=== PATIENT | male | born 1990 | race Caucasian/White ===

== ENCOUNTER 2021-06-02 18:54 | Emergency (ER) | payer BC, OTHER ==
[2021-06-02 18:59] VITALS: BP 138/82; PULSE 79; TEMP 99.1
[2021-06-02 19:51] VITALS: RESP 18
--- NOTE | 2021-06-02 19:53 | ED ---
General Adult HPI - General Chief complaint: Recheck/Abnormal Lab/Rx Stated complaint: [facility]-hand injury Time Seen by Provider: 06/02/21 19:45 Source: patient, RN notes reviewed, old records reviewed Mode of arrival: ambulatory - History of Present Illness Initial comments: 30-year-old well-appearing white male presents ambulatory to the emergency room with complaints of hitting his hand against a steel bolt at work today. There was some bleeding and his employer wanted him to be evaluated in the emergency room. He states his tetanus shot is up-to-date. Medical history of asthma. He denies pain states he did not want to come in but was told to come per his employer. He has full range of motion. No other injuries. -: hour(s) (1) Location: right, upper extremity (hand) Severity scale (1-10): 0 Associated Symptoms: denies other symptoms Treatments Prior to Arrival: none - Related Data Previous Rx's Medication Instructions Recorded Ondansetron Odt [Zofran ODT] 4 mg PO Q8HR PRN #20 tab 08/09/14 Allergies Allergy/AdvReac Type Severity Reaction Status Date / Time Penicillins Allergy Swelling Verified 06/02/21 18:59 Review of Systems ROS Statement: Those systems with pertinent positive or pertinent negative responses have been documented in the HPI. ROS Other: All systems not noted in ROS Statement are negative. Past Medical History Past Medical History: Asthma History of Any Multi-Drug Resistant Organisms: None Reported Past Surgical History: Orthopedic Surgery Additional Past Surgical History / Comment(s): shoulder sx Past Psychological History: No Psychological Hx Reported Smoking Status: Vaper Past Alcohol Use History: Occasional Past Drug Use History: None Reported General Exam General appearance: alert, in no apparent distress Head exam: Present: atraumatic, normocephalic Eye exam: Present: normal appearance. Absent: scleral icterus, conjunctival injection Cardiovascular Exam: Present: regular rate Right Hand Wrist exam: Present: full ROM, abrasion (second MCP joint). Absent: tenderness, swelling, ecchymosis, deformity, erythema Neurosensory exam: Present: radial nerve intact, ulnar nerve intact, median nerve intact Vascular: Present: normal capillary refill Neurological exam: Present: alert, oriented X3 Psychiatric exam: Present: normal affect, normal mood Skin exam: Present: warm, dry, normal color. Absent: cyanosis, diaphoretic Course Vital Signs 06/02/21 18:56 Temperature 99.1 F Pulse Rate 79 Respiratory 18 Rate Blood Pressure 138/82 O2 Sat by Pulse 97 Oximetry Procedures - Laceration Laceration #1 Consent Obtained: verbal consent Indication: laceration Site: upper extremity, hand Description: linear Depth: simple, single layer Pre-repair: irrigated extensively Type of Sutures: other (exofin glue steristrips) Patient Tolerated Procedure: well Medical Decision Making - Medical Decision Making 30-year-old male presents to the emergency room after sustaining a 0.5 cm laceration to his right hand at the second MCP joint. Patient states that his tetanus shot is up-to-date. He has no other injuries. X-ray of the right hand shows no evidence of fracture or foreign body. There is a questionable mild subluxation of the thumb interphalangeal joint however patient denies injury or pain of the thumb. He has full range of motion of hand and fingers. Wound was irrigated with copious amounts of soapy water and 20 mL of saline with syringe pressure. Patient requesting glue closure versus one stitch. He was instructed to keep the hand immobilized for 5 days to prevent tension on the wound and reopening. Patient is agreeable to this plan of care. Case discussed with Dr. Cardona. Disposition Clinical Impression: Hand laceration Disposition: HOME SELF-CARE Condition: Good Instructions (If sedation given, give patient instructions): Laceration (ED) Additional Instructions: Keep wound clean and dry. Do not put any ointment or lotions on the glue. Keep the hand immobilized for the next 7 days. Return to the emergency room if any new or concerning symptoms or signs of infection including redness, drainage or fevers. Is patient prescribed a controlled substance at d/c from ED?: No Referrals: None,Stated [Primary Care Provider] - 1-2 days Time of Disposition: 20:10
[2021-06-02] MEDS ORDERED: TOPICAL SKIN ADHESIVE 1 EACH AMP TOPICAL ONE (20:04)
--- NOTE | 2021-06-02 20:41 | XR ---
Result: Clinical History: Pain/injury. Comparison: None available. Technique: 3 views of the right hand. Findings: There is questionable mild subluxation of the thumb interphalangeal joint, only seen on one view. No acute fracture. Otherwise the joint spaces are preserved. There is no definite radiopaque foreign b martha seen. Impression: Questionable mild subluxation of the thumb interphalangeal joint. Recommend clinical correlation. Otherwise no acute fracture.
== END 2021-06-02 21:02 | disposition home or self-care (01) ==
LOC: EC 18:54
DX: S61.411A Laceration without foreign body of right hand, initial encounter (principal); J45.909 Unspecified asthma, uncomplicated; F17.290 Nicotine dependence, other tobacco product, uncomplicated; W26.8XXA Contact with other sharp object(s), not elsewhere classified, initial encounter; Y99.0 Civilian activity done for income or pay
CPT/HCPCS: 99283

== ENCOUNTER 2021-10-03 21:05 | Emergency (ER) | payer BC, OTHER ==
[2021-10-03 21:20] VITALS: BP 125/84; PULSE 95; RESP 16; TEMP 98
--- NOTE | 2021-10-03 21:30 | ED ---
Wound/Laceration HPI - General Chief Complaint: Wound/Laceration Stated Complaint: Laceration inner upper lip Time Seen by Provider: 10/03/21 21:30 Source: patient Mode of arrival: ambulatory Limitations: no limitations - History of Present Illness Initial Comments: Patient is a 31-year-old male presents to the emergency room after a trip and fall earlier tonight and which he bit up in his upper lip. He reports that he has had previous lacerations to his lip prior as he is active in sports. He denies any loss of consciousness or other concussive symptoms such as nausea, vomiting, or lethargy. Overall he is feeling well with the exception of the laceration to his upper lip. He has a past medical history significant for a set asthma without any recent acute exacerbations. - Related Data Previous Rx's Medication Instructions Recorded Ondansetron Odt [Zofran ODT] 4 mg PO Q8HR PRN #20 tab 08/09/14 Allergies Allergy/AdvReac Type Severity Reaction Status Date / Time Penicillins Allergy Swelling Verified 10/03/21 21:17 Review of Systems ROS Statement: Those systems with pertinent positive or pertinent negative responses have been documented in the HPI. ROS Other: All systems not noted in ROS Statement are negative. Past Medical History Past Medical History: Asthma History of Any Multi-Drug Resistant Organisms: None Reported Past Surgical History: Orthopedic Surgery Additional Past Surgical History / Comment(s): shoulder sx Past Psychological History: No Psychological Hx Reported Smoking Status: Vaper Past Alcohol Use History: Occasional Past Drug Use History: None Reported General Exam Limitations: no limitations General appearance: alert, in no apparent distress Head exam: Present: normocephalic Eye exam: Present: normal appearance, PERRL, EOMI. Absent: scleral icterus, conjunctival injection, periorbital swelling ENT exam: Present: normal exam, mucous membranes moist Expanded Mouth exam: Present: drooling. Absent: laceration Teeth exam: Present: normal inspection, dental caries. Absent: fractured tooth #, dental tenderness #, gingival enlargement Neck exam: Present: normal inspection Respiratory exam: Absent: respiratory distress, accessory muscle use Extremities exam: Present: normal inspection, full ROM, normal capillary refill. Absent: tenderness, pedal edema, joint swelling, calf tenderness Back exam: Present: normal inspection Neurological exam: Present: alert, oriented X3, CN II-XII intact Psychiatric exam: Present: normal affect, normal mood Skin exam: Present: warm, dry, other (laceration as above) Course Vital Signs 10/03/21 21:17 Temperature 98.0 F Pulse Rate 95 Respiratory 16 Rate Blood Pressure 125/84 O2 Sat by Pulse 97 Oximetry Medical Decision Making - Medical Decision Making This was a trip and fall laceration to his upper lip. No loss of consciousness no concussive symptoms. No indication for any acute diagnostic imaging at this time or laboratory studies. Will suture laceration after pain medicine management medication administration. Will give 2 mg of morphine IM. No dental caries are other oral lesions to indicate need for antibiotic therapy. Vaccinations up-to-date. Pain levels controlled with morphine. Laceration to upper lip sutured without complications. Will give Tylenol 3 starter pack to utilize for severe pain. Encouraged good oral care. Saltwater wrenches also encouraged. Will discharge home with follow-up with primary care provider. Case discussed with Dr. Duarte Disposition Clinical Impression: Laceration Disposition: HOME SELF-CARE Instructions (If sedation given, give patient instructions): Dental Laceration (ED) Additional Instructions: Sutures will dissolve in 7-10 days without need for removal. Salt water rinses encouraged. Monitor for signs and symptoms of infection. Please follow-up with your primary care provider. Please return to the Emergency Department if symptoms worsen or any other concerns. Is patient prescribed a controlled substance at d/c from ED?: No Referrals: None,Stated [Primary Care Provider] - 1-2 days Time of Disposition: 22:26
[2021-10-03] MEDS ORDERED: LIDOCAINE 1% INJ 10MG/ML (5 ML VIAL-PF) SQ ONE (21:47)
[2021-10-03] MEDS ORDERED: MORPHINE SULFATE 2 MG/ML SYRINGE IM STA (21:47)
[2021-10-03] MEDS ORDERED: ACET/COD 300 MG/30 MG STARTER PACK 6 TAB BTL PO STA (22:22)
== END 2021-10-03 22:33 | disposition home or self-care (01) ==
LOC: EC 21:05
DX: S01.511A Laceration without foreign body of lip, initial encounter (principal); F17.290 Nicotine dependence, other tobacco product, uncomplicated; W01.0XXA Fall on same level from slipping, tripping and stumbling without subsequent striking against object, initial encounter
CPT/HCPCS: 99283; 96372; 12011; J2001; J2270

== ENCOUNTER 2021-10-08 16:35 | Emergency (ER) | payer MEDICAID ==
[2021-10-08 16:52] VITALS: BP 141/89; PULSE 76; RESP 20; TEMP 98
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
== END 2021-10-08 18:06 | disposition home or self-care (01) ==
LOC: EC 16:35
DX: S00.03XA Contusion of scalp, initial encounter (principal); Z48.01 Encounter for change or removal of surgical wound dressing; J45.909 Unspecified asthma, uncomplicated; F17.209 Nicotine dependence, unspecified, with unspecified nicotine-induced disorders; Z88.0 Allergy status to penicillin; X58.XXXA Exposure to other specified factors, initial encounter
CPT/HCPCS: 70450; 99283

== ENCOUNTER 2023-03-22 10:05 | Emergency (ER) | payer MEDICAID ==
--- NOTE | 2023-03-22 10:14 | ED ---
General Adult HPI - General Stated complaint: Abd Pain,N/V Time Seen by Provider: 03/22/23 10:05 Source: patient, RN notes reviewed Mode of arrival: ambulatory Limitations: no limitations - History of Present Illness Initial comments: 32-year-old male presents emergency Department which he went upper abdominal pain. Patient checked in significant pain is been there for a while is getting worse she does have some nausea and vomiting. - Related Data Previous Rx's Medication Instructions Recorded Ondansetron Odt [Zofran ODT] 4 mg PO Q8HR PRN #20 tab 08/09/14 Allergies Allergy/AdvReac Type Severity Reaction Status Date / Time Penicillins Allergy Swelling Verified 10/08/21 16:52 Review of Systems ROS Statement: Those systems with pertinent positive or pertinent negative responses have been documented in the HPI. ROS Other: All systems not noted in ROS Statement are negative. Past Medical History Past Medical History: Asthma History of Any Multi-Drug Resistant Organisms: None Reported Past Surgical History: Orthopedic Surgery Additional Past Surgical History / Comment(s): shoulder sx Past Psychological History: No Psychological Hx Reported Smoking Status: Vaper Past Alcohol Use History: Occasional Past Drug Use History: None Reported General Exam - General Exam Comments Initial Comments: Visual Physical Exam Vital signs reviewed General: Well-appearing, nontoxic, no acute distress. Head: Normocephalic, atraumatic Eyes: PERRLA, EOMI ENT: Airway patent Chest: Nonlabored breathing Skin: No visual rash, normal skin tone Neuro: Alert and oriented 3 Musculoskeletal: No gross abnormalities Medical Decision Making - Medical Decision Making patient checked in and waited 3 minutes after being talked to stated that he did not want to wait Disposition Clinical Impression: Abdominal pain Disposition: LEFT AGAINST MEDICAL ADVICE Referrals: None,Stated [Primary Care Provider] - 1-2 days Time of Disposition: 10:14
== END 2023-03-22 14:07 | disposition left against medical advice (07) ==
LOC: EC 10:05
DX: R10.10 Upper abdominal pain, unspecified (principal); J45.909 Unspecified asthma, uncomplicated; F17.290 Nicotine dependence, other tobacco product, uncomplicated; Z88.0 Allergy status to penicillin; Z53.29 Procedure and treatment not carried out because of patient's decision for other reasons
CPT/HCPCS: 99283